=== PATIENT | male | born 1975 | race Two or more races ===

== ENCOUNTER 2022-07-07 11:10 | Inpatient (IN) | payer MEDICAID, OTHER ==
[~2022-07-07] VITALS: Ht 177.8 cm; Wt 75.1 kg
[2022-07-07] MEDS ORDERED: LIDOCAINE 1% (LOCAL ANESTH.) PF 5ml SDV ID ONE (11:45)
[2022-07-07] MEDS ORDERED: CLINDAMYCIN 900MG IV 50 ML IV ONE (11:45)
[2022-07-07 12:20] LABS: Basophils # (auto) 0 10 ^3/uL (0-0.2); Basophils % (auto) 0.4 % (0.0-2.0); Eosinophils # (auto) 0.1 10 ^3/uL (0-0.8); Eosinophils % (auto) 0.5 % (0.0-7.0); Hematocrit 31.9 % (41.0-53.0); Hemoglobin 10.8 g/dL (13.5-17.5); Lymphocytes # (auto) 0.9 10 ^3/uL (0.4-5.4); Lymphocytes % (auto) 8.2 % (10.0-50.0); Mean Corpuscular Hemoglobin 32.1 pg (28.0-32.0); Mean Corpuscular Hgb Conc. 33.9 g/dL (32.0-36.0); Mean Corpuscular Volume 94.6 fL (80.0-100.0); Monocytes # (auto) 0.8 10 ^3/uL (0-1.3); Monocytes % (auto) 7.5 % (0.0-12.0); Neutrophils # (auto) 9.1 10 ^3/uL (1.6-8.6); Neutrophils % (auto) 83.4 % (37.0-80.0); Red Blood Cells 3.37 10^6/uL (4.5-5.90); Red Cell Distribution Width 12.6 % (11.8-14.3); White Blood Cell 10.9 10^3/uL (4.4-10.8)
[2022-07-07 12:33] LABS: Urine Bacteria NONE SEEN /hpf (None Seen); Urine Blood TRACE /uL (Negative); Urine Mucus FEW (None Seen); Urine Specific Gravity 1.017 (1.001-1.035); Urine WBC 2 /hpf (0 - 3)
[2022-07-07 12:40] LABS: Albumin 2.5 g/dL (3.4-5.0); Potassium 4.4 mmol/L (3.5-5.1)
[2022-07-07 12:44] LABS: BUN/Creatinine Ratio 7.3 (10.0-20.0); Bilirubin, Total 0.4 mg/dL (0.2-1.0); Total Protein 6.3 g/dL (6.4-8.2)
[2022-07-07] MEDS ORDERED: NITROGLYCERIN 0.4 MG SL TAB SL PRN (16:45)
[2022-07-07] MEDS ORDERED: DEXTROSE (50%) 50ML SYRG IV PRN (16:45)
[2022-07-07] MEDS ORDERED: ACETAMINOPHEN 325 MG TAB PO PRN (16:45)
[2022-07-07] MEDS ORDERED: MORPHINE SULFATE INJ 2 MG/ml SYRG IV PRN ×2 (16:45)
[2022-07-07] MEDS ORDERED: VANCOMYCIN PER PHARMACY 0 MG IV SCH (16:45)
[2022-07-07] MEDS ORDERED: MIDO5TAB4 PO (16:55)
[2022-07-07] MEDS ORDERED: PRAV20TA3 PO (16:55)
[2022-07-07] MEDS ORDERED: CHOL20003 PO (16:55)
[2022-07-07] MEDS: ACCU-CHEK COMFORT CURVE STRIP VI SCH ×2 (17:00→22:00)
[2022-07-07] MEDS ORDERED: PANTOPRAZOLE 40 MG/10 ML VIAL INJ IV ONE (17:15)
[2022-07-07] MEDS ORDERED: VANCOMYCIN 1GM/250ML 250 ML IV ONE (17:15)
[2022-07-07 17:47] LABS: Alcohol, Urine < 3.0 mg/dL (0-10); Amphetamine Screen, Urine POSITIVE (NEGATIVE); Barbiturate Scree,Urine NEGATIVE (NEGATIVE); Benzodiazephine Screen, Urine NEGATIVE (NEGATIVE); Cannabinoid Screen, Urine NEGATIVE (NEGATIVE); Cocaine Screen, Urine NEGATIVE (NEGATIVE); Phencyclidine Screen, Urine NEGATIVE (NEGATIVE)
[2022-07-07 17:54] LABS: Opiate Scree,Urine NEGATIVE (NEGATIVE)
[2022-07-07 18:35] LABS: Blood Alcohol < 3.0 mg/dL (0-5)
[2022-07-07 18:39] LABS: Cholesterol 144 mg/dL (< 200); HDL Cholesterol 57 mg/dL (40-59); LDL Cholesterol 76 mg/dL (< 100); Triglycerides 109 mg/dL (< 150)
[2022-07-07] MEDS: ENOXAPARIN SOD 40 MG/0.4 ML SYRINGE SC SCH (19:32)
[2022-07-07] MEDS: HYDROcodone-ACET 5/325MG TAB PO PRN ×2 (19:33→23:26)
[2022-07-07] MEDS: InsuLIN REG 1unit/0.01ml Soln (100units/ml) SC SCH ×2 (19:34→23:02)
[2022-07-07] MEDS: SODIUM CHLORIDE 0.9% 1,000 ML IV SCH (19:37)
[2022-07-07] MEDS: CEFEPIME 1GM/ 50ML 50 ML IV SCH ×2 (20:52→22:00)
[2022-07-07 22:18] VITALS: BP 106/50
[2022-07-07 22:20] VITALS: BP 110/62
[2022-07-07] MEDS: MIDODRINE HCL 10 MG TAB PO SCH (23:02)
[2022-07-08] MEDS ORDERED: DULA1INJ SC (01:34)
[2022-07-08] MEDS: SODIUM CHLORIDE 0.9% 1,000 ML IV SCH ×3 (02:45→22:45)
[2022-07-08 05:00] VITALS: BP 130/69
[2022-07-08] MEDS: MIDODRINE HCL 10 MG TAB PO SCH (06:00)
[2022-07-08 06:29] LABS: Basophils # (auto) 0 10 ^3/uL (0-0.2); Basophils % (auto) 0.6 % (0.0-2.0); Eosinophils # (auto) 0.1 10 ^3/uL (0-0.8); Eosinophils % (auto) 1.6 % (0.0-7.0); Hematocrit 29.8 % (41.0-53.0); Hemoglobin 10.5 g/dL (13.5-17.5); Lymphocytes # (auto) 1.4 10 ^3/uL (0.4-5.4); Lymphocytes % (auto) 22.9 % (10.0-50.0); Mean Corpuscular Hemoglobin 32.9 pg (28.0-32.0); Mean Corpuscular Hgb Conc. 35.4 g/dL (32.0-36.0); Mean Corpuscular Volume 93.1 fL (80.0-100.0); Monocytes # (auto) 0.5 10 ^3/uL (0-1.3); Monocytes % (auto) 8.9 % (0.0-12.0); Neutrophils # (auto) 3.9 10 ^3/uL (1.6-8.6); Red Cell Distribution Width 12.6 % (11.8-14.3)
[2022-07-08 06:45] LABS: Albumin 2.2 g/dL (3.4-5.0); BUN/Creatinine Ratio 13.6 (10.0-20.0); Bilirubin, Total 0.3 mg/dL (0.2-1.0); Calcium 7.7 mg/dL (8.5-10.1); Total Protein 5.9 g/dL (6.4-8.2)
[2022-07-08] MEDS: InsuLIN REG 1unit/0.01ml Soln (100units/ml) SC SCH ×4 (06:59→21:29)
[2022-07-08] MEDS: ACCU-CHEK COMFORT CURVE STRIP VI SCH ×4 (06:59→21:42)
[2022-07-08 09:00] VITALS: BP 128/76
[2022-07-08] MEDS ORDERED: PANTOPRAZOLE 40 MG/10 ML VIAL INJ IV SCH (10:00)
[2022-07-08] MEDS: PRAVASTATIN SODIUM 20 MG TAB PO SCH (10:15)
[2022-07-08] MEDS: CHOLECALCIFEROL (VITD3) 2,000 UNIT CAP/TAB PO SCH (10:15)
[2022-07-08] MEDS: ENOXAPARIN SOD 40 MG/0.4 ML SYRINGE SC SCH (10:15)
[2022-07-08] MEDS: CEFEPIME 1GM/ 50ML 50 ML IV SCH ×2 (10:29→17:49)
[2022-07-08] MEDS ORDERED: VANCOMYCIN 1GM/250ML 250 ML IV ONE (10:30)
[2022-07-08 13:00] VITALS: BP 123/70
[2022-07-08 17:13] VITALS: BP 122/68
[2022-07-08] MEDS: HYDROcodone-ACET 5/325MG TAB PO PRN (17:49)
[2022-07-08 22:00] VITALS: BP 128/63
[2022-07-08] MEDS: VANCOMYCIN 1GM/250ML 250 ML IV SCH (22:58)
[2022-07-09] VITALS (7 sets, daily range): BP systolic 126–142; BP diastolic 64–84
[2022-07-09] MEDS: CEFEPIME 1GM/ 50ML 50 ML IV SCH ×2 (02:18→10:31)
[2022-07-09] MEDS: ACCU-CHEK COMFORT CURVE STRIP VI SCH ×4 (06:01→21:24)
[2022-07-09] MEDS: InsuLIN REG 1unit/0.01ml Soln (100units/ml) SC SCH ×4 (06:01→21:26)
[2022-07-09] MEDS: CHOLECALCIFEROL (VITD3) 2,000 UNIT CAP/TAB PO SCH (10:31)
[2022-07-09] MEDS: ENOXAPARIN SOD 40 MG/0.4 ML SYRINGE SC SCH (10:31)
[2022-07-09] MEDS: PRAVASTATIN SODIUM 20 MG TAB PO SCH (10:32)
[2022-07-09] MEDS: SODIUM CHLORIDE 0.9% 1,000 ML IV SCH (10:35)
[2022-07-09] MEDS: VANCOMYCIN 1GM/250ML 250 ML IV SCH ×2 (11:36→23:05)
[2022-07-09] MEDS ORDERED: hydrALAZINE HCL 20 MG/ML VL IV PRN (19:45)
[2022-07-10 05:00] VITALS: BP 133/71
[2022-07-10 05:51] LABS: Basophils # (auto) 0 10 ^3/uL (0-0.2); Basophils % (auto) 0.9 % (0.0-2.0); Eosinophils # (auto) 0.1 10 ^3/uL (0-0.8); Eosinophils % (auto) 2.6 % (0.0-7.0); Hemoglobin 10.6 g/dL (13.5-17.5); Lymphocytes # (auto) 1.3 10 ^3/uL (0.4-5.4); Lymphocytes % (auto) 27.9 % (10.0-50.0); Mean Corpuscular Hemoglobin 32.2 pg (28.0-32.0); Mean Corpuscular Hgb Conc. 35.2 g/dL (32.0-36.0); Mean Corpuscular Volume 91.5 fL (80.0-100.0); Monocytes # (auto) 0.4 10 ^3/uL (0-1.3); Monocytes % (auto) 9.5 % (0.0-12.0); Neutrophils # (auto) 2.7 10 ^3/uL (1.6-8.6); Neutrophils % (auto) 59.1 % (37.0-80.0); Nucleated Red Blood Cells % 0.1 %; Red Blood Cells 3.28 10^6/uL (4.5-5.90); Red Cell Distribution Width 12.4 % (11.8-14.3); White Blood Cell 4.5 10^3/uL (4.4-10.8)
[2022-07-10 06:02] LABS: BUN/Creatinine Ratio 15.4 (10.0-20.0); Calcium 8.7 mg/dL (8.5-10.1); Potassium 4.2 mmol/L (3.5-5.1)
[2022-07-10] MEDS: ACCU-CHEK COMFORT CURVE STRIP VI SCH ×3 (06:20→17:00)
[2022-07-10] MEDS: InsuLIN REG 1unit/0.01ml Soln (100units/ml) SC SCH ×3 (06:21→17:00)
[2022-07-10 07:55] VITALS: BP 130/76
[2022-07-10 08:00] VITALS: BP 130/76
[2022-07-10] MEDS ORDERED: GAUZMIS XX (09:06)
[2022-07-10] MEDS ORDERED: [UNRECOGNIZED DRUG - CODE] XX (09:06)
[2022-07-10] MEDS ORDERED: HYDR-4902 PO (09:06)
[2022-07-10] MEDS ORDERED: [UNRECOGNIZED DRUG - CODE] XX (09:06)
[2022-07-10] MEDS ORDERED: BACDST PO (09:06)
[2022-07-10] MEDS: PRAVASTATIN SODIUM 20 MG TAB PO SCH (10:40)
[2022-07-10] MEDS: CHOLECALCIFEROL (VITD3) 2,000 UNIT CAP/TAB PO SCH (10:40)
[2022-07-10] MEDS: ENOXAPARIN SOD 40 MG/0.4 ML SYRINGE SC SCH (10:41)
[2022-07-10] MEDS: VANCOMYCIN 1GM/250ML 250 ML IV SCH (12:12)
[2022-07-10 12:25] VITALS: BP 125/66
[2022-07-10 15:15] VITALS: BP 130/76
[2022-07-10 16:00] VITALS: BP 117/67
== END 2022-07-10 16:30 | DRG 720 ==
LOC: ER 11:10 → TELE 16:55 → TELE-EAST 22:37 → EAST 07-08 22:54
PROVIDERS: ADMIT Registered Nurse; ATTEND Nurse Practitioner Acute Care
DX: A41.9 Sepsis, unspecified organism (principal); N17.0 Acute kidney failure with tubular necrosis; E43 Unspecified severe protein-calorie malnutrition; E11.22 Type 2 diabetes mellitus with diabetic chronic kidney disease; E86.0 Dehydration; E55.9 Vitamin D deficiency, unspecified; E11.65 Type 2 diabetes mellitus with hyperglycemia; L02.512 Cutaneous abscess of left hand; E78.5 Hyperlipidemia, unspecified; I12.9 Hypertensive chronic kidney disease with stage 1 through stage 4 chronic kidney disease, or unspecified chronic kidney disease; L03.012 Cellulitis of left finger; F15.10 Other stimulant abuse, uncomplicated; L03.114 Cellulitis of left upper limb; N18.32 Chronic kidney disease, stage 3b; S62.502A Fracture of unspecified phalanx of left thumb, initial encounter for closed fracture; Z83.3 Family history of diabetes mellitus; Z59.01 Sheltered homelessness
CPT/HCPCS: 10060; 36415; 71045; 73200; 73218; 80048; 80053; 80061; 80202; 80307; 80320; 81001; 82306; 82565; 82962; 83036; 83605; 84443; 85025; 87040; 87077; 87186; 87205; C9113; G0378; J1815; J3490